=== PATIENT | female | born 1985 | race Caucasian/White ===

== ENCOUNTER 2018-06-29 19:21 | Emergency (ER) | payer OTHER, MEDICAID ==
[~2018-06-29] VITALS: Ht 180.3 cm; Wt 69.5 kg
[2018-06-29 19:25] VITALS: Ht 180.3 cm; Wt 69.5 kg
[2018-06-29] MEDS ORDERED: CLIMARA 0.0.1 MG/PAT (19:26)
[2018-06-29] MEDS ORDERED: LATUDA40 MG (19:27)
[2018-06-29] MEDS ORDERED: SYNTHROID50 MCG (19:27)
[2018-06-29] MEDS ORDERED: NEURONTIN 400400 MG (19:27)
[2018-06-29] MEDS ORDERED: ULTRAM50 MG (19:27)
[2018-06-29] MEDS ORDERED: LEXAPRO20 MG PO (19:27)
[2018-06-29] MEDS ORDERED: LEXAPRO5 MG (19:27)
[2018-06-29] MEDS ORDERED: LATUDA80 MG PO (19:28)
[2018-06-29] MEDS ORDERED: KLONOPIN1 MG PO (19:28)
[2018-06-29 19:47] LABS: APPEARANCE CLEAR (CLEAR); BILIRUBIN NEGATIVE (NEGATIVE); COLOR YELLOW (YELLOW); GLUCOSE NEGATIVE (NEGATIVE); KETONE NEGATIVE (NEGATIVE); NITRITE NEGATIVE (NEGATIVE); PROTEIN NEGATIVE (NEGATIVE); UROBILINOGEN NORMAL (NORMAL)
[2018-06-29 19:59] LABS: UDS - AMPHET POSITIVE QUAL (NEGATIVE); UDS - BARB NEGATIVE QUAL (NEGATIVE); UDS - BENZO POSITIVE QUAL (NEGATIVE); UDS - COCAINE NEGATIVE QUAL (NEGATIVE); UDS - OPIATE NEGATIVE QUAL (NEGATIVE); UDS - PCP NEGATIVE QUAL (NEGATIVE); UDS - THC POSITIVE QUAL (NEGATIVE)
[2018-06-29 20:17] LABS: BASOPHILS 0.2 % (0-2); EOSINOPHILS 0.4 % (0-7); HEMATOCRIT 36.4 % (36.0-48.0); HEMOGLOBIN 12.5 g/dL (12-16); IMMATURE GRANULOCYTES 0.2 % (0-5); LYMPHOCYTES 37.6 % (15-50); MCH 29.5 pg (26.0-34.0); MCHC 34.3 g/dL (31.0-37.0); MCV 85.8 fL (80.0-100.0); MEAN PLATELET VOLUME 10.1 fL (7.4-10.4); MONOCYTES 7.1 % (2-11); NEUTROPHILS 54.5 % (40-80); RBC 4.24 10x6/uL (4.00-5.40); WBC 10.3 10x3/uL (4.8-10.8)
[2018-06-29 20:33] LABS: PLATELET COUNT 325 10x3/uL (130-400)
[2018-06-29 20:34] LABS: ALBUMIN 3.9 g/dL (3.4-5.0); ALKALINE PHOSPHATASE 167 U/L (46-116); ALT (SGPT) 29 U/L (10-68); BILIRUBIN - TOTAL 1.04 mg/dL (0.2-1.3); CALC OSMOLALITY 274 mosm/kg (275-300); CALCIUM 9.4 mg/dL (8.5-10.1); CARBON DIOXIDE 26.5 mmol/L (21.0-32.0); CHLORIDE - SERUM 102 mmol/L (98-107); CREATININE - SERUM 0.9 mg/dL (0.6-1.3); GLUCOSE 86 mg/dL (74-106); POTASSIUM - SERUM 3.4 mmol/L (3.5-5.1); PROTEIN - SERUM 7.6 g/dL (6.4-8.2); SODIUM 139 mmol/L (136-145); UREA NITROGEN 7 mg/dL (7-18); eGFR NON AFRICAN AMERICAN 76 mL/min (90-120)
[2018-06-29 20:45] LABS: THYROID STIMULATING HORMONE 1.82 uIU/mL (0.36-3.74)
[2018-06-29 22:29] LABS: HCG SERUM NEGATIVE (NEGATIVE)
[2018-06-30 00:15] VITALS: BP 140/79
== END 2018-06-30 00:15 ==
LOC: D.ER 19:21
PROVIDERS: Family Medicine
DX: R45.851 Suicidal ideations (principal); F32.9 Major depressive disorder, single episode, unspecified; R45.850 Homicidal ideations; F19.10 Other psychoactive substance abuse, uncomplicated; F20.9 Schizophrenia, unspecified; F17.200 Nicotine dependence, unspecified, uncomplicated

== ENCOUNTER 2018-09-28 14:47 | Emergency (ER) | payer OTHER, MEDICAID ==
[~2018-09-28] VITALS: Ht 180.3 cm; Wt 65.5 kg
[~2018-09-28 14:47] MED LIST: CLIMARA 0.0.1 MG/PAT; KLONOPIN1 MG PO; LATUDA40 MG; LATUDA80 MG PO; LEXAPRO20 MG PO; LEXAPRO5 MG; NEURONTIN 400400 MG; SYNTHROID50 MCG; ULTRAM50 MG
[2018-09-28 14:53] VITALS: BP 90/48; Ht 180.3 cm; Wt 65.5 kg
[2018-09-28] MEDS ORDERED: LEXAPRO20 MG (14:56)
[2018-09-28] MEDS ORDERED: ZANAFLEX2 M1 (14:57)
[2018-09-28] MEDS ORDERED: ESTRACE1 MG PO (14:57)
[2018-09-28] MEDS ORDERED: SEROQUEL25 MG PO (14:58)
[2018-09-28] MEDS ORDERED: HYDROCODON-ACE1 EAC7 (14:58)
== END 2018-09-28 18:00 | disposition home or self-care (01) ==
LOC: D.ER 14:47
DX: Z76.5 Malingerer [conscious simulation] (principal); F17.200 Nicotine dependence, unspecified, uncomplicated

== ENCOUNTER → 2018-10-09 16:18 | Outpatient (CLI) | payer MEDICARE, MEDICAID ==
[2018-09-28 14:53] VITALS: BMI 20.1
[~2018-10-09 16:18] MED LIST changes: +ESTRACE1 MG PO; +HYDROCODON-ACE1 EAC7; +LEXAPRO20 MG; +SEROQUEL25 MG PO; +ZANAFLEX2 M1
== END | disposition home or self-care (01) ==
LOC: D.MRI 16:18
DX: M54.5 Low back pain (principal)

== ENCOUNTER 2018-12-16 12:21 | Emergency (ER) | payer MEDICARE, MEDICAID ==
[~2018-12-16] VITALS: Ht 180.3 cm; Wt 66.0 kg
[2018-12-16 12:25] VITALS: Ht 180.3 cm; Wt 66.0 kg
[2018-12-16] MEDS ORDERED: REMERON15 MG PO (12:28)
[2018-12-16] MEDS ORDERED: LATUDA80 MG PO (12:29)
[2018-12-16] MEDS ORDERED: HYDROCODON-ACE1 EA10 PO (13:14)
[2018-12-16] MEDS ORDERED: ZANAFLEX4 MG PO (13:14)
[2018-12-16 14:05] VITALS: BP 114/76
== END 2018-12-16 14:07 | disposition home or self-care (01) ==
LOC: D.ER 12:21
DX: M45.4 Ankylosing spondylitis of thoracic region (principal); M51.16 Intervertebral disc disorders with radiculopathy, lumbar region; N31.8 Other neuromuscular dysfunction of bladder

== ENCOUNTER 2018-12-31 05:32 | Emergency (ER) | payer MEDICARE, MEDICAID ==
[~2018-12-31 05:32] MED LIST changes: +HYDROCODON-ACE1 EA10 PO; +REMERON15 MG PO; +ZANAFLEX4 MG PO
[2018-12-31 06:39] LABS: BASOPHILS 0.1 % (0-2); EOSINOPHILS 0.1 % (0-7); HEMATOCRIT 34.2 % (36.0-48.0); HEMOGLOBIN 11.7 g/dL (12-16); IMMATURE GRANULOCYTES 0.1 % (0-5); LYMPHOCYTES 21.8 % (15-50); MCH 29.7 pg (26.0-34.0); MCHC 34.2 g/dL (31.0-37.0); MCV 86.8 fL (80.0-100.0); MEAN PLATELET VOLUME 10.5 fL (7.4-10.4); MONOCYTES 3.1 % (2-11); NEUTROPHILS 74.8 % (40-80); RBC 3.94 10x6/uL (4.00-5.40); RDW 13.5 % (11.5-14.5); WBC 8.8 10x3/uL (4.8-10.8)
[2018-12-31 06:43] LABS: ALBUMIN 4.2 g/dL (3.4-5.0); ALKALINE PHOSPHATASE 93 U/L (46-116); ALT (SGPT) 28 U/L (10-68); BILIRUBIN - TOTAL 0.79 mg/dL (0.2-1.3); C-REACTIVE PROTEIN 0.3 mg/dL (0.0-0.9); CALC OSMOLALITY 281 mosm/kg (275-300); CALCIUM 9.3 mg/dL (8.5-10.1); CARBON DIOXIDE 23.4 mmol/L (21.0-32.0); CHLORIDE - SERUM 104 mmol/L (98-107); CREATININE - SERUM 0.9 mg/dL (0.6-1.3); GLUCOSE 136 mg/dL (74-106); POTASSIUM - SERUM 3.9 mmol/L (3.5-5.1); PROTEIN - SERUM 7.1 g/dL (6.4-8.2); SODIUM 140 mmol/L (136-145); UREA NITROGEN 15 mg/dL (7-18); eGFR NON AFRICAN AMERICAN 76 mL/min (90-120)
[2018-12-31 06:45] LABS: APPEARANCE CLEAR (CLEAR); BILIRUBIN NEGATIVE (NEGATIVE); COLOR YELLOW (YELLOW); GLUCOSE NEGATIVE (NEGATIVE); KETONE NEGATIVE (NEGATIVE); NITRITE NEGATIVE (NEGATIVE); PROTEIN NEGATIVE (NEGATIVE)
[2018-12-31 06:55] VITALS: BP 98/49
[2018-12-31 06:56] LABS: HCG URINE NEGATIVE (NEGATIVE); UDS - AMPHET POSITIVE QUAL (NEGATIVE); UDS - BARB NEGATIVE QUAL (NEGATIVE); UDS - BENZO POSITIVE QUAL (NEGATIVE); UDS - COCAINE NEGATIVE QUAL (NEGATIVE); UDS - OPIATE POSITIVE QUAL (NEGATIVE); UDS - PCP NEGATIVE QUAL (NEGATIVE); UDS - THC POSITIVE QUAL (NEGATIVE)
[2018-12-31 06:59] LABS: PLATELET COUNT 220 10x3/uL (130-400)
== END 2018-12-31 06:56 | disposition home or self-care (01) ==
LOC: D.ER 05:32
PROVIDERS: Family Medicine
DX: M54.5 Low back pain (principal); M25.80 Other specified joint disorders, unspecified joint

== ENCOUNTER 2019-02-25 11:54 | Emergency (ER) | payer MEDICARE, MEDICAID ==
[~2019-02-25] VITALS: Ht 180.3 cm; Wt 69.5 kg
[2019-02-25 11:55] VITALS: Ht 180.3 cm; Wt 69.5 kg
[2019-02-25] MEDS ORDERED: HYDROCODON-ACE1 EAC2 PO (12:35)
[2019-02-25 13:40] VITALS: BP 120/62
== END 2019-02-25 13:43 | disposition home or self-care (01) ==
LOC: D.ER 11:54
DX: M54.16 Radiculopathy, lumbar region (principal)

== ENCOUNTER 2020-05-10 22:30 | Emergency (ER) | payer MEDICARE, MEDICAID ==
[~2020-05-10] VITALS: Ht 180.3 cm; Wt 54.5 kg
[~2020-05-10 22:30] MED LIST changes: +HYDROCODON-ACE1 EAC2 PO
[2020-05-10 22:35] VITALS: Ht 180.3 cm; Wt 54.5 kg
[2020-05-11 00:21] VITALS: BP 128/70
== END 2020-05-11 00:22 | disposition home or self-care (01) ==
LOC: D.ER 22:30
DX: S93.401A Sprain of unspecified ligament of right ankle, initial encounter (principal); S39.012A Strain of muscle, fascia and tendon of lower back, initial encounter; X58.XXXA Exposure to other specified factors, initial encounter; M54.9 Dorsalgia, unspecified

== ENCOUNTER 2020-10-26 13:37 | Emergency (ER) | payer MEDICARE, MEDICAID ==
[~2020-10-26] VITALS: Ht 180.3 cm; Wt 77.1 kg
[2020-10-26 13:43] VITALS: BP 126/84; Ht 180.3 cm; Wt 77.1 kg
[2020-10-26] MEDS ORDERED: CLEOCIN HCL75 MG (13:48)
[2020-10-26] MEDS ORDERED: LATUDA40 MG (13:49)
[2020-10-26] MEDS ORDERED: MYSOLINE 50 MG50 MG (13:49)
[2020-10-26] MEDS ORDERED: TIROSINT13 MCG (13:49)
[2020-10-26] MEDS ORDERED: ULTRAM50 MG (13:50)
[2020-10-26] MEDS ORDERED: LYRICA25 MG (13:50)
[2020-10-26] MEDS ORDERED: VITAMIN B-1250 MCG (13:51)
[2020-10-26] MEDS ORDERED: VITAMIN D325 MC1 PO (13:51)
[2020-10-26] MEDS ORDERED: ASCORBIC ACID500 MG PO (13:51)
[2020-10-26 14:25] LABS: HEMOGLOBIN 11.9 g/dL (12-16); MCHC 33.1 g/dL (31.0-37.0); MCV 87.8 fL (80.0-100.0); MEAN PLATELET VOLUME 10.2 fL (7.4-10.4); NEUTROPHILS 50.8 % (40-80); PLATELET COUNT 235 10x3/uL (130-400); WBC 5.2 10x3/uL (4.8-10.8)
[2020-10-26 14:38] LABS: CALC OSMOLALITY 276 mosm/kg (275-300); CALCIUM 8.6 mg/dL (8.5-10.1); CARBON DIOXIDE 28.2 mmol/L (21.0-32.0); CHLORIDE - SERUM 105 mmol/L (98-107); CREATININE - SERUM 0.8 mg/dL (0.6-1.3); GLUCOSE 97 mg/dL (74-106); POTASSIUM - SERUM 4.5 mmol/L (3.5-5.1); SODIUM 139 mmol/L (136-145); UREA NITROGEN 10 mg/dL (7-18); eGFR NON AFRICAN AMERICAN 86 mL/min (90-120)
[2020-10-26 14:55] LABS: ALBUMIN 3.6 g/dL (3.4-5.0); ALKALINE PHOSPHATASE 227 U/L (30-120); ALT (SGPT) 147 U/L (10-68); BILIRUBIN - TOTAL 0.29 mg/dL (0.2-1.3); CKMB 1.1 U/L (0.0-3.6); CREATINE KINASE 92 UL (21-215); PROTEIN - SERUM 6.7 g/dL (6.4-8.2)
[2020-10-26 14:56] LABS: TROPONIN-I < 0.017 ng/mL (0.000-0.060)
[2020-10-26 15:57] LABS: BILIRUBIN NEGATIVE (NEGATIVE); KETONE NEGATIVE (NEGATIVE); NITRITE NEGATIVE (NEGATIVE); UROBILINOGEN NORMAL mg/dL (< 2)
== END 2020-10-26 16:20 | disposition home or self-care (01) ==
LOC: D.ER 13:37
PROVIDERS: Emergency Medicine
DX: F41.9 Anxiety disorder, unspecified (principal); R07.89 Other chest pain; R53.83 Other fatigue